=== PATIENT | female | born 1965 | race Caucasian/White ===

== ENCOUNTER 2016-12-28 12:33 | Emergency (ER) | payer OTHER ==
[2016-12-28 13:55] VITALS: BP 152/72
--- NOTE | 2016-12-28 14:32 | UC ---
Throat Pain/Nasal Juan C HPI - HPI Summary HPI Summary: B/l ear pain congestion and cough, sore hroat - History of Current Complaint Chief Complaint: UCRespiratory Stated Complaint: BILAT EAR PAIN,COUGH Time Seen by Provider: 12/28/16 14:26 Hx Obtained From: Patient Hx Last Menstrual Period: two weeks ago ?: No Onset/Duration: Sudden Onset, Lasting Days, Still Present Severity: Mild Cough: Nonproductive Associated Signs & Symptoms: Positive: Sinus Discomfort, Nasal Discharge Related History: Seasonal Allergies - Allergies/Home Medications Allergies/Adverse Reactions: Allergies Allergy/AdvReac Type Severity Reaction Status Date / Time CILLIONS Allergy Intermediate Swelling Uncoded 08/27/16 11:57 Of Face,Lips,& Throat Home Medications: Home Medications Bupropion HCl [Wellbutrin Sr] 300 mg PO 12/28/16 [History] Loratadine [Claritin 10 MG CAP] 10 mg PO 12/28/16 [History] Vitamin E 100 unit PO 12/28/16 [History] PMH/Surg Hx/FS Hx/Imm Hx Previously Healthy: No Cardiovascular History Of: Reports: Hypertension - borderline - Surgical History Surgical History: Yes Surgery Procedure, Year, and Place: Tonsillectomy. GallBladder - Family History Known Family History: Negative: Cardiac Disease, Hypertension, Diabetes - Social History Occupation: Employed Full-time Lives: With Family Alcohol Use: Occasionally Substance Use Type: None Smoking Status (MU): Never Smoked Tobacco Review of Systems Constitutional: Negative Skin: Negative Eyes: Negative ENT: Sore Throat, Ear Ache, Nasal Discharge Respiratory: Cough Cardiovascular: Negative Gastrointestinal: Negative Genitourinary: Negative Motor: Negative Neurovascular: Negative Musculoskeletal: Negative Neurological: Negative Psychological: Negative All Other Systems Reviewed And Are Negative: Yes Physical Exam Triage Information Reviewed: Yes Appearance: Well-Appearing, No Pain Distress, Well-Nourished Vital Signs: Initial Vital Signs Temp 96.9 F 12/28/16 13:52 Pulse 88 12/28/16 13:52 Resp 18 12/28/16 13:52 BP 152/72 12/28/16 13:52 Pulse Ox 96 12/28/16 13:52 Vital Signs Reviewed: Yes Eye Exam: Normal Eyes: Positive: Conjunctiva Clear ENT Exam: Normal ENT: Positive: Normal ENT inspection, Hearing grossly normal, Pharynx normal, Nasal congestion, Nasal drainage, TMs normal. Negative: Tonsillar swelling, Tonsillar exudate, Trismus, Muffled/hoarse voice Dental Exam: Normal Neck exam: Normal Neck: Positive: Supple, Nontender, No Lymphadenopathy Respiratory Exam: Normal Respiratory: Positive: Chest non-tender, Lungs clear, Normal breath sounds, No respiratory distress, No accessory muscle use Cardiovascular Exam: Normal Cardiovascular: Positive: RRR, No Murmur, Pulses Normal, Brisk Capillary Refill Musculoskeletal Exam: Normal Musculoskeletal: Positive: Strength Intact, ROM Intact, No Edema Neurological Exam: Normal Neurological: Positive: Alert, Muscle Tone Normal Psychological Exam: Normal Skin Exam: Normal Throat Pain/Nasal Course/Dx - Course Assessment/Plan: Flonase, zyrtec follow BP with PCP - Differential Dx/Diagnosis Differential Diagnosis/HQI/PQRI: Otitis Media, Pharyngitis, Sinusitis, URI Provider Diagnoses: HTN, Allergic Rhinnitis Discharge - Discharge Plan Condition: Stable Disposition: HOME Patient Education Materials: Fluticasone (Into the nose), Pharyngitis (ED), Allergic Rhinitis (ED), Earache (ED) Referrals: Xochitl Barrientos MD [Primary Care Provider] - If Needed
== END 2016-12-28 14:38 | disposition home or self-care (01) ==
LOC: UCEAST 12:33
DX: J30.9 Allergic rhinitis, unspecified (principal); I10 Essential (primary) hypertension; Z88.0 Allergy status to penicillin; Z90.49 Acquired absence of other specified parts of digestive tract
CPT/HCPCS: 99211; G0463

== ENCOUNTER 2017-02-23 15:35 | Emergency (ER) | payer OTHER ==
[2017-02-23 15:49] VITALS: BP 152/92
== END 2017-02-23 17:30 | disposition left against medical advice (07) ==
LOC: UCEAST 15:35
DX: M25.561 Pain in right knee (principal); Z53.21 Procedure and treatment not carried out due to patient leaving prior to being seen by health care provider

== ENCOUNTER 2017-07-14 06:41 | Day surgery (SDC) | payer OTHER ==
[~2017-07-14 06:41] MED LIST: Acetaminophen TAB* 325 MG ONE; Acetaminophen TAB* 325 MG PO ONE; Buffered Lidocaine 0.9% SYRIN* 5 ML/SYR SYRINGE INTRADERM ONE; Dexamethasone IV* 4 MG/ML 1 ML (4 MG) IV SLOW PU ONE; Dexamethasone IV* 4 MG/ML 1 ML (4 MG) ONE; Famotidine IV* 10 MG/ML 2 ML (20 mg) IV ONE; Famotidine IV* 10 MG/ML 2 ML (20 mg) ONE
[2017-07-14] MEDS ORDERED: fentaNYL* 50 MCG/ML 2 ML VIAL (100 MCG VIAL) ONE (06:59)
[2017-07-14] MEDS ORDERED: Midazolam* 1 MG/ML 2 ML VIAL (2 MG) ONE (06:59)
[2017-07-14] MEDS ORDERED: Clindamycin 900 MG IVPREMIX(* 900 MG/50 ML SDV IV ONE (07:11)
[2017-07-14] MEDS ORDERED: HYDROmorphone INJ* 1 MG/ML CARPUJECT SYRINGE IV PRN (07:16)
[2017-07-14] MEDS ORDERED: fentaNYL* 50 MCG/ML 2 ML VIAL (100 MCG VIAL) IV PRN (07:16)
[2017-07-14] MEDS ORDERED: Ibuprofen TAB* 600 MG PO PRN (07:16)
[2017-07-14] MEDS ORDERED: Ondansetron INJ* 2 MG/ML VIAL IV PRN (07:16)
[2017-07-14] MEDS ORDERED: HYDROcodone/ACETAMIN 5-325 MG* 1 TAB PO PRN (07:16)
[2017-07-14] MEDS ORDERED: oxyCODONE TAB* 5 MG TAB PO PRN (07:16)
[2017-07-14] MEDS ORDERED: PROCHLORPERAZINE INJ 5 MG/ML 2 ML VIAL IV PRN (07:16)
[2017-07-14] MEDS ORDERED: Bupivacaine 0.25% SDV* 30 ML ONE ×2 (07:24→09:30)
[2017-07-14] MEDS ORDERED: Phenylephrine IV* 40 MCG/ML 10 ML SYRINGE ONE (07:58)
[2017-07-14] MEDS ORDERED: Ketorolac INJ* 30 MG/ML 1 ML VIAL ONE (08:12)
[2017-07-14] MEDS ORDERED: Ondansetron INJ* 2 MG/ML VIAL ONE (08:12)
[2017-07-14] MEDS ORDERED: Lidocaine 2% PF * 5 ML VIAL ONE (08:12)
[2017-07-14] MEDS ORDERED: Propofol* 10 MG/ML 20 ML BTL IV PUSH ONE (08:12)
[2017-07-14] MEDS ORDERED: hydrALAZINE IV* 20 MG/ML VIAL ONE (08:13)
[2017-07-14 11:55] VITALS: BP 151/87
--- NOTE | 2017-07-15 12:31 | OP ---
DATE OF OPERATION: 07/14/17 - [facility] DATE OF : 63 SURGEON: Lonnie Villalobos MD OCCUPATIONAL THERAPY SPECIALIST: PAZ Gould. An lpn or medical assistant was needed to aid in positioning of the arm and retraction. ANESTHESIOLOGIST: Dr. Ibeth Kirk ANESTHESIA: General. 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 OPERATIVE PROCEDURE: 1. Left thumb carpometacarpal arthroplasty with trapeziectomy and distally based flexor carpi radialis tendon transfer for thumb suspension. 2. Left thumb metacarpophalangeal joint volar capsular imbrication. INDICATIONS: Alba is 52. She has had progressive pain and disability in the left thumb despite nonoperative treatment. We had talked to her about risks and benefits. She wanted to proceed with surgery. FINDINGS: As expected. EBL: 5 mL. COMPLICATIONS: None. DESCRIPTION OF PROCEDURE: Alba was seen in the preoperative holding area. The correct side, site, and procedure were identified. We came back to the operating room. The arm was prepped and draped in the usual fashion. A time- out was performed. The arm was exsanguinated with the Esmarch and the tourniquet was inflated to 250 mmHg. A longitudinal 2 to 3 cm incision was made from the dorsal aspect of the thumb metacarpal base down towards the radial styloid. Dissection was carried down and the radial sensory nerve was retracted. The radial artery was dissected out and retracted. Longitudinal capsular and periosteal incision was made and the capsular and subperiosteal flaps were raised forwardly and dorsally and the soft tissue was released from the perimeter of the trapezium. This was then excised with a rongeur. The FCR tendon was very degenerative in the base of the wound. I did go ahead after I had excised the trapezium in its entirety. I did go ahead and make a bone tunnel using sequentially larger drill bits from the dorsoradial aspect of the thumb metacarpal base exiting out the volar-ulnar aspect of the thumb base. Once the drill tunnel was made, I went ahead and irrigated everything out. I then turned my attention towards harvesting my FCR tendon. I made a 1-cm transverse incision and delivered the FCR tendon up into the wound. This was just proximal to the wrist flexion crease. I made a second tendon quite a bit more proximal, but near the musculotendinous junction, brought the tendon up into the wound and incised it transversely. I then pulled the entirety of the FCR tendon down into my more distal forearm wound. I then very carefully delivered the remainder of the tendon down into the thumb base wound. The tendon was then split with the tenotomy scissors down to the base of the second metacarpal. Due to the degeneration near the insertion of the tendon, one slip was completely excised and handed off. The remaining half of the tendon remained attached to the base of the second metacarpal, was delivered out through the bone tunnel in the base of the first metacarpal. I then moved back around and secured to the radial aspect of the base of the second metacarpal with one mini Mitek suture anchor. This provided excellent suspension of the thumb. The remainder of the tendon tail was was brought up into a ball, secured with 3-0 Ethibond suture, and placed as an interposition between the base of the thumb metacarpal and the distal pole of the scaphoid. I had examined the scaphotrapezial joint by pulling longitudinal traction on the second ray and placing a [place] elevator in the joint. The cartilage there looked intact. Once the tendon transfer was complete, I went ahead and irrigated out that wound. The capsule was closed with 3-0 Ethibond suture. The wounds were closed with 3-0 PDS suture after they had been irrigated. At this point, we did go ahead and let down the tourniquet, placed some dressings. We then re-exsanguinated the arm and performed the volar capsular imbrication. I made a radially based V-shaped flap over the MP joint flexion crease. Dissection was carried down and the radial and ulnar digital nerves were retracted to their respective sides. The A1 lorin was opened. The tendon was retracted radially. I went ahead and took a 3-0 Ethibond and placed 2 imbricating sutures through the volar plate and volar capsule of the MP joint. These were placed with the thumb in 30 degrees of flexion at the MP joint. After the stitches were placed, thumb came out to just neutral extension and the wound go no farther. Prior to placing the stitches, it hyperextended about 60 degrees. At this point, everything was looking good, so we went ahead and irrigated out that wound. Skin was closed with 4-0 Monocryl suture. Wounds were dressed with Xeroform, 4x4s, sterile Webril, and a thumb spica splint was placed holding the first metacarpal in abduction and the MP joint in 30 degrees of flexion. Tourniquet was deflated. The hand pinked up immediately. She was then woken up and taken to the recovery room in stable condition. [id number]/CPS #: [id number] MTDD
== END 2017-07-14 10:55 | disposition home or self-care (01) ==
LOC: OREAST 06:41
PROVIDERS: ATTEND Orthopaedic Surgery Hand Surgery
DX: M18.12 Unilateral primary osteoarthritis of first carpometacarpal joint, left hand (principal); M06.9 Rheumatoid arthritis, unspecified; G47.33 Obstructive sleep apnea (adult) (pediatric); I10 Essential (primary) hypertension; K21.9 Gastro-esophageal reflux disease without esophagitis; Z68.37 Body mass index [BMI] 37.0-37.9, adult; Z87.891 Personal history of nicotine dependence
CPT/HCPCS: A9270-GY; C1713; J0360; J1100; J1885; J2250; J2405; J2704; J3010

== ENCOUNTER 2017-11-27 09:54 | Emergency (ER) | payer OTHER ==
[2017-11-27 10:11] VITALS: BP 151/68
--- NOTE | 2017-11-27 10:40 | UC ---
Respiratory Complaint HPI - HPI Summary HPI Summary: patient c/o severe left maxillary pain for several days following episode of nasal congestion, postnasal drip with yellow greenish sputum and low grade fever. 2 days ago she lost her voice. Denies tobacco, states she works speaking out often. - History of Current Complaint Chief Complaint: UCRespiratory Stated Complaint: SINUS ISSUE EAR PAIN COUGH Time Seen by Provider: 11/27/17 10:27 Hx Last Menstrual Period: current Pain Intensity: 5 - Allergies/Home Medications Allergies/Adverse Reactions: Allergies Allergy/AdvReac Type Severity Reaction Status Date / Time amoxicillin Allergy Swelling Verified 11/27/17 10:12 Of Face,Lips,& Throat Penicillins Allergy rash Verified 11/27/17 10:12 breathing anaph Home Medications: Home Medications Calcium Carbonate TAB* 1,250 mg PO DAILY 11/27/17 [History Confirmed 11/27/17] Cyanocobalamin TAB* [Vitamin B12 TAB*] 500 mcg PO DAILY 11/27/17 [History Confirmed 11/27/17] Multivitamin [Multivitamins] 1 cap PO DAILY 11/27/17 [History Confirmed 11/27/17 ] Omeprazole CAP* [Prilosec CAP* 20 MG] 20 mg PO DAILY PRN 11/27/17 [History Confirmed 11/27/17] PMH/Surg Hx/FS Hx/Imm Hx Previously Healthy: Yes Psychological History: Depression - Surgical History Surgical History: Yes Surgery Procedure, Year, and Place: Tonsillectomy. GallBladder. L hand surgery - Family History Known Family History: Negative: Cardiac Disease, Hypertension, Diabetes - Social History Alcohol Use: Rare Alcohol Amount: holidays Substance Use Type: None Smoking Status (MU): Never Smoked Tobacco Review of Systems ENT: Nasal Discharge, Sinus Pain/Tenderness Respiratory: Cough All Other Systems Reviewed And Are Negative: Yes Physical Exam Triage Information Reviewed: Yes Appearance: Ill-Appearing, Obese Vital Signs: Initial Vital Signs Temp 97.5 F 11/27/17 10:05 Pulse 85 11/27/17 10:05 Resp 16 11/27/17 10:05 BP 151/68 11/27/17 10:05 Pulse Ox 100 11/27/17 10:05 Vital Signs Reviewed: Yes Eye Exam: Normal Eyes: Positive: Conjunctiva Clear ENT: Positive: Hearing grossly normal, Pharyngeal erythema, TMs normal, Uvula midline, Other - tender on left maxillary area Neck: Positive: Supple, Nontender, No Lymphadenopathy Respiratory: Positive: Chest non-tender, Lungs clear, Normal breath sounds, No respiratory distress, No accessory muscle use Cardiovascular: Positive: RRR, No Murmur, Pulses Normal, Brisk Capillary Refill UC Diagnostic Evaluation - Laboratory O2 Sat by Pulse Oximetry: 100 Respiratory Course/Dx - Course Course Of Treatment: start antibiotics as prescribed, oral hydration, yougurt. Follow up with PCP. - Differential Dx/Diagnosis Provider Diagnoses: laryngitis. acute left maxillary sinusitis Discharge - Sign-Out/Discharge Documenting (check all that apply): Discharge - Discharge Plan Condition: Stable Disposition: HOME Forms: *Work Release Referrals: Xochitl Barrientos MD [Primary Care Provider] - - Billing Disposition and Condition Condition: STABLE Disposition: HOME
== END 2017-11-27 10:50 | disposition home or self-care (01) ==
LOC: UCEAST 09:54
DX: J01.00 Acute maxillary sinusitis, unspecified (principal); J04.0 Acute laryngitis; F32.9 Major depressive disorder, single episode, unspecified; Z88.0 Allergy status to penicillin
CPT/HCPCS: 99212; G0463

== ENCOUNTER 2018-02-25 10:43 | Emergency (ER) | payer OTHER ==
[2018-02-25 10:51] VITALS: BP 156/93
--- NOTE | 2018-02-25 11:51 | UC ---
Headache HPI - History Of Current Complaint Chief Complaint: UCHeadakenzie Stated Complaint: HEADACHE,BURNING,SWELLING Time Seen by Provider: 02/25/18 11:51 Hx Last Menstrual Period: current Pain Intensity: 5 - Allergies/Home Medications Allergies/Adverse Reactions: Allergies Allergy/AdvReac Type Severity Reaction Status Date / Time amoxicillin Allergy Swelling Verified 02/25/18 10:51 Of Face,Lips,& Throat Penicillins Allergy rash Verified 02/25/18 10:51 breathing anaph PMH/Surg Hx/FS Hx/Imm Hx - Surgical History Surgical History: Yes Surgery Procedure, Year, and Place: Tonsillectomy. GallBladder. L hand surgery - Family History Known Family History: Negative: Cardiac Disease, Hypertension, Diabetes - Social History Alcohol Use: Rare Alcohol Amount: holidays Substance Use Type: None Smoking Status (MU): Never Smoked Tobacco Physical Exam Vital Signs: Initial Vital Signs Temp 96.0 F 02/25/18 10:48 Pulse 80 02/25/18 10:48 Resp 18 02/25/18 10:48 BP 156/93 02/25/18 10:48 Pulse Ox 99 02/25/18 10:48 Discharge - Discharge Plan Referrals: Xochitl Barrientos MD [Primary Care Provider] -
[2018-02-25] MEDS ORDERED: Fluorescein Sod TOPICAL 0.6* 0.6 MG TEST OPHTHALMIC ONE (12:03)
--- NOTE | 2018-02-25 12:24 | UC ---
Jaime Philip Rebecca, scribed for Jossy Jiang MD on 02/25/18 at 1158 . Headache HPI - HPI Summary HPI Summary: Pt is a 52 y/o F who presents to [facility] c/o MCDUFFIE. Sx began on Tuesday (5 days ago) and has been constant since onset. MCDUFFIE began similarly to prior migraines - "tracking" through the left eye. On triage, pain is moderate ranked 5/10 and has been unchanged by her Maxalt. Additionally c/o L eyelid swelling/burning, generalized blurred vision, slight nausea, and burning and "a few bumps" on the left side of her head since last night. Denies fever, chills, CP, SOB, and vomiting. Has not had shingles. PMHx RA, migraine - takes 10 mg propranolol daily and has not had one in a year. Reports that typically she has cluster migraines, so they come in groups of 3 and typically do not persist as long as the current episode. Viri feels started as migraines but now has noticed painful bumps - History Of Current Complaint Chief Complaint: UCHeadache Stated Complaint: HEADACHE,BURNING,SWELLING Time Seen by Provider: 02/25/18 11:51 Hx Obtained From: Patient Hx Last Menstrual Period: current Onset/Duration: Lasting Days - 5 days, Still Present Currently Pain Is: Moderate Pain Intensity: 5 Pain Scale Used: 0-10 Numeric Character: Migraine Location of Headache: Other: - Behind L eye Aggravating Factor(s): Nothing Allevating Factor(s): Nothing Associated Signs And Symptoms: Positive: Nausea, Visual Changes - Blurred vision - Allergies/Home Medications Allergies/Adverse Reactions: Allergies Allergy/AdvReac Type Severity Reaction Status Date / Time amoxicillin Allergy Swelling Verified 02/25/18 10:51 Of Face,Lips,& Throat Penicillins Allergy rash Verified 02/25/18 10:51 breathing anaph PMH/Surg Hx/FS Hx/Imm Hx - Additional Past Medical History Additional PMH: PMHx: RA Previously Healthy: Yes Other Endocrine History: negative Other Cardiovascular History: negative Respiratory History: Other Other Respiratory History: Seasonal allergies Other GI/ History: negative Neurological History: Migraine Other Neurological History: negative Other Psychological History: negative - Surgical History Surgical History: Yes Surgery Procedure, Year, and Place: Tonsillectomy. GallBladder. L hand surgery - Family History Known Family History: Negative: Cardiac Disease, Hypertension, Diabetes - Social History Alcohol Use: Rare Alcohol Amount: holidays Substance Use Type: None Smoking Status (MU): Never Smoked Tobacco Review of Systems Constitutional: Negative Skin: Other - "a few bumps" on the left side of her head Eyes: Blurred Vision, Other - L eyelid swelling/burning ENT: Negative Respiratory: Negative Cardiovascular: Negative Gastrointestinal: Nausea Genitourinary: Negative Motor: Negative Neurovascular: Negative Musculoskeletal: Negative Neurological: Headache Psychological: Negative All Other Systems Reviewed And Are Negative: Yes - Comments Additional Review of Systems Comments: NEGATIVE: Fever, chills, CP, SOB, and vomiting Physical Exam - Summary Physical Exam Summary: Appearance: Well-Appearing, No Pain Distress, Well-Nourished Eyes: conjunctiva clear, no discharge ENT: Hearing grossly normal, no muffled/hoarse voice. Neck: Normal, Supple Respiratory/Lung Sounds: Lungs clear, Normal breath sounds, No respiratory distress, No accessory muscle use Cardiovascular: RRR, No murmur Abdomen: Nontender, Soft, no guarding, not distended Bowel Sounds: Present Musculoskeletal: Normal Neurological: Alert, muscle tone normal Psychiatric:Normal, age appropriate behavior Skin: 3-4 small papular vesicles on the left frontal methodist area, Warm, Dry, Normal color Triage Information Reviewed: Yes Appearance: Well-Appearing, No Pain Distress Vital Signs: Initial Vital Signs Temp 96.0 F 02/25/18 10:48 Pulse 80 02/25/18 10:48 Resp 18 02/25/18 10:48 BP 156/93 02/25/18 10:48 Pulse Ox 99 02/25/18 10:48 Vital Signs Reviewed: Yes Eye Exam: Normal Eyes: Positive: Conjunctiva Clear ENT: Positive: Pharynx normal, Nasal congestion, TMs normal. Negative: Pharyngeal erythema, Muffled voice, Hoarse voice Neck: Positive: Supple, Nontender, No Lymphadenopathy Respiratory: Positive: Chest non-tender, Lungs clear, Normal breath sounds. Negative: Crackles, Rhonchi, Stridor Cardiovascular Exam: Normal Cardiovascular: Positive: RRR, No Murmur Abdomen Description: Positive: Nontender, Soft Skin: Positive: significant lesion(s) Headache Course/Dx - Course Course Of Treatment: Fluorescein stain is unremarkable. - Differential Dx/Diagnosis Provider Diagnoses: shingles. migraine Discharge - Sign-Out/Discharge Documenting (check all that apply): Discharge/Admit/Transfer - Discharge - Discharge Plan Condition: Stable Disposition: HOME Prescriptions: Butalb/Acetamin/Caff TAB* [Fioricet TAB*] 1 tab PO Q6H PRN 7 Days #30 tab MDD 6 PRN Reason: Headache/Pain ValACYclovir (*) [Valtrex 1 GM(*)] 1 gm PO TID 10 Days #30 tab Patient Education Materials: Shingles (ED), Migraine Headache (ED) Referrals: Xochitl Barrientos MD [Primary Care Provider] - 2 Days Additional Instructions: Start taking medicine as prescribed. It has been prescribed to the pharmacy . Follow up with your primary care doctor in 2 - 3 days. Please follow up with ophthalmology if worsening vision or other eye symptoms for the consult Patients blood pressure slightly high in Urgent care today , plan follow up with PCP for better control Return to Urgent care / ER if symptoms get worse. - Billing Disposition and Condition Condition: STABLE Disposition: Home The documentation as recorded by the Jaime leong Rebecca accurately reflects the service I personally performed and the decisions made by me, Jossy Jiang MD.
== END 2018-02-25 12:29 | disposition home or self-care (01) ==
LOC: UCEAST 10:43
DX: G43.909 Migraine, unspecified, not intractable, without status migrainosus (principal); B02.9 Zoster without complications; M06.9 Rheumatoid arthritis, unspecified; Z88.0 Allergy status to penicillin
CPT/HCPCS: 99212; G0463